=== PATIENT | female | born 1945 | race African-American/Black ===

== ENCOUNTER 2025-03-15 15:42 | Emergency (ER) | payer BC, OTHER ==
[~2025-03-15] VITALS: Ht 165.1 cm; Wt 84.0 kg
[2025-03-15 15:46] VITALS: O2SAT 99
[2025-03-15 16:28] LABS: BASOPHILS % 0.7 % (0.0-2.0); EOSINOPHILS % 1.1 % (0.0-5.0); HEMATOCRIT. 36.8 % (36.0-48.0); HEMOGLOBIN. 11.3 g/dL (12.0-16.0); LYMPHOCYTES % 13.4 % (20.0-50.0); MEAN PLATELET VOLUME 9.5 fl (7.4-10.4); MONOCYTES % 9.2 % (2.0-8.0); NEUTROPHILS % 75.6 % (40.0-76.0); PLATELET 118 x1000/uL (130-400); RED BLOOD CELL COUNT 5.12 mill/uL (4.2-5.4); RED CELL DISTRIBUTION WIDTH 16.0 % (11.6-14.6)
[2025-03-15 16:41] LABS: CREATININE 0.9 mg/dL (0.6-1.0); UREA NITROGEN BLOOD 11 mg/dL (9-23)
[2025-03-15 16:42] LABS: TROPONIN I HIGH SENSITIVITY < 4 ng/L (3.0-34)
[2025-03-15 20:45] VITALS: BP 112/72; PULSE 75; RESP 14; TEMP 36.8; O2SAT 99
== END 2025-03-15 21:04 | disposition short-term general hospital (02) ==
LOC: ER 15:42
DX: I89.0 Lymphedema, not elsewhere classified (principal); R07.89 Other chest pain; E78.00 Pure hypercholesterolemia, unspecified; I11.0 Hypertensive heart disease with heart failure; I50.9 Heart failure, unspecified; I49.1 Atrial premature depolarization
CPT/HCPCS: 36415; 71045; 80048; 83880; 84484; 85025; 93005; 99285